=== PATIENT | male | born 1995 | race Caucasian/White ===

== ENCOUNTER 2018-03-21 15:28 | Emergency (ER) | payer BC, OTHER ==
[~2018-03-21] VITALS: Ht 180.3 cm; Wt 61.2 kg
[2018-03-21 15:50] VITALS: BP 118/69
--- NOTE | 2018-03-21 15:52 | NUR ---
PT TRIAGED AND SENT TO ED LOBBY. EDMD AWARE OF PT STATUS
--- NOTE | 2018-03-21 17:02 | NUR ---
PT AMBULATED TO ED BED 2
--- NOTE | 2018-03-21 17:05 | NUR ---
PT. CAME INTO THE ED DUE TO R MIDDLE FINGER SINCE TODAY. PT. STATES " I WAS CLEANING SOME GLASS AND I CUT MYSELF TODAY". LACERATION NOTED TO MIDDLE FINGER. 3/10 ACHING PAIN IN MIDDLE FINGER THAT IS NON RADIATING AT THIS TIME. CAP REFILL LESS THAN 3 SEC, BLEEDING CONTROLLED. WILL CONTINUE TO MONITOR . ER MD NOTIFIED. WILL CONTINUE TO MONITOR. SAFETY PRECAUTIONS IMPLEMETED.
[2018-03-21] MEDS ORDERED: LIDOCAINE MPF 1% 5mL VIAL INJ ONE (18:15)
[2018-03-21] MEDS ORDERED: NEOMYCIN/POLYMYXIN/BACITRACIN 0.9 GM/1 PKT TP ONE (18:15)
[2018-03-21 20:26] VITALS: BP 129/69
--- NOTE | 2018-03-21 20:26 | NUR ---
Patient discharged with v/s stable. Written and verbal after care instructions given and explained. Patient alert, oriented and verbalized understanding of instructions. Ambulatory with steady gait. All questions addressed prior to discharge. ID band removed. Patient advised to follow up with PMD. work note given. Opportunity to ask questions provided and answered.
--- NOTE | 2018-03-21 20:27 | NUR ---
medication administered by edmd for laceration care.
== END 2018-03-21 20:26 | disposition home or self-care (01) ==
LOC: MED 15:28
DX: S61.212A Laceration without foreign body of right middle finger without damage to nail, initial encounter (principal); W25.XXXA Contact with sharp glass, initial encounter; Y93.89 Activity, other specified; Y92.89 Other specified places as the place of occurrence of the external cause; Y99.8 Other external cause status
CPT/HCPCS: 12002; 99283; J2001

== ENCOUNTER 2023-11-29 12:42 | Emergency (ER) | payer BC, OTHER ==
[~2023-11-29] VITALS: Ht 180.3 cm; Wt 99.8 kg
[2023-11-29 12:53] VITALS: BP 131/92; PULSE 79; RESP 18; TEMP 97.1; O2SAT 99
[2023-11-29] MEDS ORDERED: MECL-303 PO (13:32)
[2023-11-29] MEDS ORDERED: ACET-10509 PO (13:32)
[2023-11-29] MEDS: ACETAMINOPHEN EXTRA STRENGTH 500 MG TAB PO ONE (13:40)
[2023-11-29 13:47] VITALS: BP 134/60; PULSE 78; RESP 18; TEMP 98.3; O2SAT 99
== END 2023-11-29 13:47 | disposition home or self-care (01) ==
LOC: MED 12:42
DX: G44.309 Post-traumatic headache, unspecified, not intractable (principal); Z79.1 Long term (current) use of non-steroidal anti-inflammatories (NSAID)
CPT/HCPCS: 99282

== ENCOUNTER 2024-04-15 12:23 | Emergency (ER) | payer OTHER ==
[~2024-04-15] VITALS: Ht 182.9 cm; Wt 90.7 kg
[~2024-04-15 12:23] MED LIST: ACET500T99 PO; MECL-303 PO
[2024-04-15 12:55] VITALS: BP 125/71; PULSE 64; RESP 22; TEMP 98.2; O2SAT 99
[2024-04-15] MEDS: ACETAMINOPHEN EXTRA STRENGTH 500 MG TAB PO ONE (13:57)
[2024-04-15] MEDS ORDERED: CYCL-711 PO (14:08)
[2024-04-15] MEDS ORDERED: ACET500T99 PO (14:08)
[2024-04-15] MEDS ORDERED: IBUP-2213 PO (14:08)
== END 2024-04-15 14:22 | disposition home or self-care (01) ==
LOC: MED 12:23
DX: S39.012A Strain of muscle, fascia and tendon of lower back, initial encounter (principal); R51.9 Headache, unspecified; M54.2 Cervicalgia; Z79.899 Other long term (current) drug therapy; V89.2XXA Person injured in unspecified motor-vehicle accident, traffic, initial encounter; Y93.89 Activity, other specified; Y92.410 Unspecified street and highway as the place of occurrence of the external cause; Y99.8 Other external cause status
CPT/HCPCS: 72100; 99283